=== PATIENT | female | born 1995 | race Hispanic/Latino ===

== ENCOUNTER 2020-09-17 16:37 | Emergency (ER) | payer OTHER | END 2020-09-17 18:16 | disposition home or self-care (01) | LOC: EDH 16:37 | DX: R42 Dizziness and giddiness (principal); R20.2 Paresthesia of skin | CPT/HCPCS: 99281 ==

== ENCOUNTER 2021-10-26 19:58 | Emergency (ER) | payer BC, OTHER ==
[~2021-10-26] VITALS: Ht 160 cm; Wt 72.6 kg
[2021-10-27] MEDS ORDERED: ACETAMINOPHEN 500 MG TABLET PO ONE (03:30)
[2021-10-27] MEDS ORDERED: ONDANSETRON ODT 4MG TAB SL ONE (03:30)
[2021-10-27] MEDS ORDERED: ONDA4TAB10 PO (04:44)
[2021-10-27] MEDS ORDERED: METO-296 PO (04:45)
[2021-10-27 04:56] VITALS: BP 95/53
== END 2021-10-27 05:00 | disposition home or self-care (01) ==
LOC: EDH 19:58
DX: O9A.211 Injury, poisoning and certain other consequences of external causes complicating pregnancy, first trimester (principal); S30.1XXA Contusion of abdominal wall, initial encounter; Z3A.01 Less than 8 weeks gestation of pregnancy; Y04.2XXA Assault by strike against or bumped into by another person, initial encounter; Y93.89 Activity, other specified; Y92.89 Other specified places as the place of occurrence of the external cause; Y99.8 Other external cause status
CPT/HCPCS: 76801